=== PATIENT | female | born 1965 | race Caucasian/White ===

== ENCOUNTER 2017-05-26 10:44 | Emergency (ER) | payer MEDICARE, MEDICAID ==
[~2017-05-26] VITALS: Ht 160 cm; Wt 55.0 kg
[~2017-05-26 10:44] MED LIST: AZIT250T PO; CLIN-80 PO; CYCL-394 PO; NEBI10TA4 PO
[2017-05-26] MEDS ORDERED: GUAI1TBM19 PO (11:38)
[2017-05-26] MEDS ORDERED: AZIT250T2 PO (11:38)
[2017-05-26] MEDS ORDERED: ALBU6.7H INH (11:38)
[2017-05-26 11:44] VITALS: BP 153/114
== END 2017-05-26 11:46 | disposition home or self-care (01) ==
LOC: ER 10:45
DX: J20.9 Acute bronchitis, unspecified (principal); I10 Essential (primary) hypertension; Z79.899 Other long term (current) drug therapy; Z88.8 Allergy status to other drugs, medicaments and biological substances
CPT/HCPCS: 71020; 99284

== ENCOUNTER 2019-07-31 11:15 | Emergency (ER) | payer MEDICARE, MEDICAID ==
[~2019-07-31] VITALS: Ht 160 cm; Wt 69.5 kg
[~2019-07-31 11:15] MED LIST changes: +ALBU6.7H9 INH; -CLIN-80 PO; +CLIN-97 PO; +GUAI1TBM19 PO
[2019-07-31 11:31] VITALS: BP 151/110
[2019-07-31] MEDS ORDERED: PENI500T2 PO (12:44)
[2019-07-31] MEDS ORDERED: HYDR-4353 PO (12:44)
[2019-07-31] MEDS ORDERED: HYDROcodone/acetaminophen 10/325mg tab PO ONE (12:45)
== END 2019-07-31 13:07 | disposition home or self-care (01) ==
LOC: ER 11:15
DX: K02.9 Dental caries, unspecified (principal); I10 Essential (primary) hypertension; Z98.51 Tubal ligation status; Z98.891 History of uterine scar from previous surgery; Z72.89 Other problems related to lifestyle; Z88.9 Allergy status to unspecified drugs, medicaments and biological substances; Z79.2 Long term (current) use of antibiotics
CPT/HCPCS: 99283

== ENCOUNTER 2023-03-03 11:28 | Emergency (ER) | payer MEDICARE, MEDICAID ==
[~2023-03-03] VITALS: Ht 160 cm; Wt 72.7 kg
[~2023-03-03 11:28] MED LIST changes: +ALBU6.7H14 INH; -ALBU6.7H9 INH
[2023-03-03 11:52] VITALS: TEMP 96.7
--- NOTE | 2023-03-03 12:33 | NUR ---
PT PRESENTS TO THE ER FOR RIGHT ANKLE PAIN. PT REPORTS TAKING A STEP OFF CURB AND ROLLED ANKLE. PT CMS INTANT. PT AIRWAY PATENT, RESPIRATIONS EVEN AND UNLABORED. RIGHT RADIAL PULSE 81.
[2023-03-03] MEDS ORDERED: HYDROcodone/acetaminophen 10/325mg tab PO ONE ×2 (12:50→14:05)
--- NOTE | 2023-03-03 13:20 | NUR ---
reviewed charting agree with findings
[2023-03-03 14:42] VITALS: BP 125/83; PULSE 90; RESP 18; O2SAT 93
--- NOTE | 2023-03-03 14:52 | NUR ---
SPLITTING DONE BY EDWARD HOFFMANN Addendum: 03/03/23 at 1452 by JOHN SPLINTING DONE BY EDWARD HOFFMANN
[2023-03-03] MEDS ORDERED: HYDR-3973 PO (15:01)
--- NOTE | 2023-03-03 19:02 | NUR ---
FIELD SALES CONSULTANT assessment reviewed by RN, approved by this RN.
== END 2023-03-03 15:22 | disposition home or self-care (01) ==
LOC: ER 11:30
DX: S82.832A Other fracture of upper and lower end of left fibula, initial encounter for closed fracture (principal); I10 Essential (primary) hypertension; Z88.6 Allergy status to analgesic agent; Z88.8 Allergy status to other drugs, medicaments and biological substances; Z79.2 Long term (current) use of antibiotics; Z79.899 Other long term (current) drug therapy; Z98.51 Tubal ligation status; W19.XXXA Unspecified fall, initial encounter; Y93.89 Activity, other specified; Y92.89 Other specified places as the place of occurrence of the external cause; Y99.8 Other external cause status
CPT/HCPCS: 29515; 73610; 99284

== ENCOUNTER 2023-03-07 10:35 | Inpatient (IN) | payer MEDICARE, MEDICAID ==
[~2023-03-07] VITALS: Ht 160 cm; Wt 80.0 kg
[~2023-03-07 10:35] MED LIST changes: +HYDR-3973 PO
--- NOTE | 2023-03-07 11:43 | NUR ---
CHANNEL ROUGHER ASSESSMENT REVIEWED BY ANIRUDH SALMON; APPROVED Addendum: 03/07/23 at 1217 by MARSHA NOTE MADE BY Adelia COTE RNC, CS
[2023-03-07] MEDS ORDERED: LIDOcaine 1% W/epiNEPHrine 1:200,000 10ml vial IJ STA (13:57)
[2023-03-07] MEDS ORDERED: fentaNYL/PF 50MCG/1 ML 2ML syringe IV ONE ×3 (14:00→16:00)
[2023-03-07] MEDS ORDERED: LIDOcaine 1% W/epiNEPHrine 1:100,000 20ml vial IJ STA (14:00)
[2023-03-07] MEDS ORDERED: ondansetron/PF 4mg/2ml inj IV ONE ×2 (14:10→17:00)
[2023-03-07] MEDS: LIDOCAINE 1%/EPI 1:100,000 inj. 10 ML multi-dose vial IJ STA ×2 (14:15→14:34)
--- NOTE | 2023-03-07 14:15 | NUR ---
DR RIVER AT BEDSIDE TO INJECT LOCAL ANESTHETIC AND REDUCE ANKLE. EMT TECH AT BEDSIDE TO ASSIST WITH REDUCTION AND SPLINTING.
[2023-03-07] MEDS ORDERED: diazepam inj 5 MG/ML inj. IV ONE (15:35)
[2023-03-07] MEDS ORDERED: propofol 10mg/ml 20ml vial IV ONE (16:15)
[2023-03-07] MEDS ORDERED: morphine 4 MG/ML inj SYRINge IV ONE (17:00)
[2023-03-07] MEDS ORDERED: BUSP15TA7 PO (17:21)
[2023-03-07] MEDS ORDERED: FLUT16SP26 BOTHNARES (17:21)
[2023-03-07] MEDS ORDERED: ATEN50TA8 PO (17:21)
[2023-03-07] MEDS ORDERED: LEVO75TA PO (17:21)
[2023-03-07] MEDS ORDERED: GABA600T13 PO (17:21)
[2023-03-07 17:59] LABS: BASOPHILS # (AUTO) 0.1 X10'3 (0-0.2); BASOPHILS % (AUTO) 1.2 % (0-1); EOSINOPHILS # (AUTO) 0.3 X10'3 (0-0.9); EOSINOPHILS % (AUTO) 4.5 % (0-6); HEMATOCRIT 41.8 % (35.0-45.0); HEMOGLOBIN 13.7 g/dl (12.0-16.0); LYMPHOCYTES # (AUTO) 2.4 X10'3 (1.1-4.8); LYMPHOCYTES % (AUTO) 33.3 % (21-51); MEAN CORPUSCULAR HEMOGLOBIN 29.2 PG (27.0-31.0); MEAN CORPUSCULAR HGB CONC 32.8 g/dL (33.0-36.5); MEAN CORPUSCULAR VOLUME 89.1 FL (78-98); MONOCYTES # (AUTO) 0.6 X10'3 (0-0.9); MONOCYTES % (AUTO) 8.6 % (2-12); NEUTROPHILS # (AUTO) 3.8 X10'3 (1.8-7.7); NEUTROPHILS % (AUTO) 52.4 % (42-75); PLATELET COUNT 393 X10'3 (140-440); RED BLOOD COUNT 4.69 X10'6 (4.20-5.60); RED CELL DISTRIBUTION WIDTH 13.1 % (11.5-14.5); WHITE BLOOD COUNT 7.2 X10'3 (4.5-11.0)
[2023-03-07 18:10] LABS: ALANINE AMINOTRANSFERASE 22 U/L (12-78); ALBUMIN 3.2 G/DL (3.4-5.0); ALBUMIN/GLOBULIN RATIO 0.9 (1.1-1.5); ALKALINE PHOSPHATASE 75 IU/L (46-116); ANION GAP 7 (8-16); ASPARTATE AMINO TRANSFERASE 17 U/L (10-37); BILIRUBIN,TOTAL 0.5 MG/DL (0.1-1.0); BLOOD UREA NITROGEN 12 MG/DL (7-18); BUN/CREATININE RATIO 16.4 (10.0-20.0); CALCIUM 9.6 MG/DL (8.5-10.1); CHLORIDE 103 MMOL/L (99-107); CREATININE 0.73 MG/DL (0.40-0.90); GLUCOSE 103 MG/DL (70-104); POTASSIUM 4.1 MMOL/L (3.5-5.1); SODIUM 140 MMOL/L (135-145); TOTAL CARBON DIOXIDE 30.4 MMOL/L (24-32); TOTAL PROTEIN 6.7 G/DL (6.4-8.2); eCRCL 72 ML/MIN; eGFR 83 ML/MIN
--- NOTE | 2023-03-07 19:14 | NUR ---
Pt given meal tray, given admission plan for tonight and surgery on . Pt comfortable.
[2023-03-07] MEDS ORDERED: acetaminophen 325mg tablet PO PRN (20:10)
[2023-03-07] MEDS ORDERED: potassium Cl 40MEQ/1/2NS 520ml 520 ML IV PRN (20:10)
[2023-03-07] MEDS ORDERED: magnesium hydroxide 30ml (MOM) UD suspension PO PRN (20:10)
[2023-03-07] MEDS ORDERED: potassium Cl 20 mEq SR tablet PO PRN ×2 (20:10)
[2023-03-07] MEDS ORDERED: morphine 2 MG/ML inj. syringe IV PRN (20:10)
[2023-03-07] MEDS ORDERED: magnesium 4gm in 100ml NS 100 ML IV PRN (20:10)
[2023-03-07] MEDS ORDERED: magnesium Cl slow-release 64mg tablet PO PRN (20:10)
[2023-03-07] MEDS ORDERED: HYDROcodone/acetaminophen 5mg/325mg tablet PO PRN (20:10)
[2023-03-07] MEDS ORDERED: mag hydrox/Alum hydrox/simeth 30ml oral suspension PO PRN (20:10)
[2023-03-07] MEDS ORDERED: magnesium 2GM in 50ml NS 50 ML IV PRN (20:10)
[2023-03-07] MEDS ORDERED: ondansetron/PF 4mg/2ml inj IV PRN (20:10)
[2023-03-07] MEDS ORDERED: fluticasone nasal spray 16GM bottle NS PRN (20:25)
[2023-03-07] MEDS ORDERED: non-formulary drug (Gabapentin 1 TAB) PO SCH (21:00)
[2023-03-07] MEDS: gabapentin 300mg capsule PO SCH (21:35)
[2023-03-07] MEDS: HYDROcodone/acetaminophen 10/325mg tab PO SCH (21:36)
[2023-03-07] MEDS: atenolol 50mg tablet PO SCH (21:52)
[2023-03-07] MEDS: busPIRone 15mg tablet PO SCH (21:53)
[2023-03-07 23:00] VITALS: BP 132/89; PULSE 81; RESP 16; TEMP 98.2; O2SAT 94
[2023-03-08] MEDS ORDERED: albuterol 2.5 MG/3 ML nebule NEB PRN (02:00)
[2023-03-08 06:00] VITALS: BP 118/66; PULSE 79; RESP 15; TEMP 97.1; O2SAT 97
--- NOTE | 2023-03-08 06:15 | NUR ---
Patient in room ORTHO 4024. I have received report from Robinson SALMON and had the opportunity to ask questions and assume patient care.
[2023-03-08 06:16] LABS: BASOPHILS # (AUTO) 0.1 X10'3 (0-0.2); BASOPHILS % (AUTO) 1.2 % (0-1); EOSINOPHILS # (AUTO) 0.4 X10'3 (0-0.9); HEMATOCRIT 42.8 % (35.0-45.0); HEMOGLOBIN 14.2 g/dl (12.0-16.0); LYMPHOCYTES # (AUTO) 2.7 X10'3 (1.1-4.8); LYMPHOCYTES % (AUTO) 37.1 % (21-51); MEAN CORPUSCULAR HEMOGLOBIN 29.3 PG (27.0-31.0); MEAN CORPUSCULAR HGB CONC 33.1 g/dL (33.0-36.5); MEAN CORPUSCULAR VOLUME 88.5 FL (78-98); MEAN PLATELET VOLUME 6.9 FL (7.4-10.4); MONOCYTES # (AUTO) 0.7 X10'3 (0-0.9); MONOCYTES % (AUTO) 9.9 % (2-12); NEUTROPHILS # (AUTO) 3.3 X10'3 (1.8-7.7); NEUTROPHILS % (AUTO) 45.8 % (42-75); PLATELET COUNT 379 X10'3 (140-440); RED BLOOD COUNT 4.83 X10'6 (4.20-5.60); RED CELL DISTRIBUTION WIDTH 13.3 % (11.5-14.5); WHITE BLOOD COUNT 7.3 X10'3 (4.5-11.0)
--- NOTE | 2023-03-08 06:29 | NUR ---
reported off to day RN. pt resting, elevating foot on cast elevator. no pain medication requested. noted norco was scheduled instead of PRN - sent note to pharmacy to change to PRN.
[2023-03-08 06:45] LABS: ALANINE AMINOTRANSFERASE 20 U/L (12-78); ALBUMIN 3.1 G/DL (3.4-5.0); ALBUMIN/GLOBULIN RATIO 0.9 (1.1-1.5); ALKALINE PHOSPHATASE 71 IU/L (46-116); ANION GAP 5 (8-16); ASPARTATE AMINO TRANSFERASE 16 U/L (10-37); BILIRUBIN,TOTAL 0.6 MG/DL (0.1-1.0); BLOOD UREA NITROGEN 15 MG/DL (7-18); BUN/CREATININE RATIO 19.2 (10.0-20.0); CALCIUM 9.7 MG/DL (8.5-10.1); CHLORIDE 105 MMOL/L (99-107); CREATININE 0.78 MG/DL (0.40-0.90); GLUCOSE 106 MG/DL (70-104); MAGNESIUM 2.3 MG/DL (1.5-2.4); POTASSIUM 5.2 MMOL/L (3.5-5.1); SODIUM 140 MMOL/L (135-145); TOTAL CARBON DIOXIDE 30.5 MMOL/L (24-32); TOTAL PROTEIN 6.5 G/DL (6.4-8.2); eCRCL 67 ML/MIN; eGFR 77 ML/MIN
[2023-03-08] MEDS: enoxaparin 40mg/0.4ml syringe SUBCUT SCH (07:50)
[2023-03-08] MEDS: levoTHYROXINE 75mcg tablet PO SCH (07:51)
[2023-03-08] MEDS: docusate sod 100mg capsule PO SCH ×2 (07:51→19:40)
[2023-03-08] MEDS: busPIRone 15mg tablet PO SCH ×2 (07:52→19:41)
[2023-03-08] MEDS: gabapentin 300mg capsule PO SCH ×3 (07:52→19:41)
[2023-03-08] MEDS: atenolol 50mg tablet PO SCH ×2 (07:52→19:42)
[2023-03-08] MEDS: HYDROcodone/acetaminophen 10/325mg tab PO SCH (07:54)
[2023-03-08 08:00] VITALS: RESP 15; O2SAT 97
[2023-03-08] MEDS ORDERED: DEXTROMETHORPHAN PO SCH (08:00)
[2023-03-08] MEDS: K and/or MAG REPLACEMENT MC SCH ×2 (08:00→20:00)
[2023-03-08] MEDS ORDERED: GUAIFENESIN PO SCH (08:00)
[2023-03-08 10:00] VITALS: BP 124/66; PULSE 70; RESP 18; TEMP 97.9; O2SAT 92
[2023-03-08] MEDS: HYDROcodone/acetaminophen 10/325mg tab PO PRN ×2 (13:21→19:40)
[2023-03-08 18:00] VITALS: BP 119/71; PULSE 70; RESP 16; TEMP 97.6; O2SAT 95
--- NOTE | 2023-03-08 18:18 | NUR ---
Problems reprioritized. Patient report given, questions answered & plan of care reviewed with Kathy Chavez Rn.
--- NOTE | 2023-03-08 18:30 | NUR ---
Patient in room ORTHO 4024. I have received report from MARIELA HELM and had the opportunity to ask questions and assume patient care.
[2023-03-08 20:00] VITALS: RESP 18; O2SAT 96
[2023-03-08] MEDS: morphine 2 MG/ML inj. syringe IV PRN (21:25)
[2023-03-08 22:00] VITALS: BP 132/84; PULSE 63; RESP 19; TEMP 97.6; O2SAT 93
[2023-03-09] VITALS (15 sets, daily range): BP systolic 92–136; BP diastolic 61–87; PULSE 60–88; RESP 10–18; TEMP 98.5; O2SAT 93–100
[2023-03-09] MEDS: morphine 2 MG/ML inj. syringe IV PRN ×5 (05:10→20:14)
[2023-03-09 06:09] LABS: BASOPHILS # (AUTO) 0.1 X10'3 (0-0.2); BASOPHILS % (AUTO) 1.1 % (0-1); EOSINOPHILS # (AUTO) 0.4 X10'3 (0-0.9); EOSINOPHILS % (AUTO) 6.4 % (0-6); HEMATOCRIT 43.3 % (35.0-45.0); HEMOGLOBIN 14.4 g/dl (12.0-16.0); LYMPHOCYTES # (AUTO) 2.3 X10'3 (1.1-4.8); LYMPHOCYTES % (AUTO) 34.3 % (21-51); MEAN CORPUSCULAR HEMOGLOBIN 29.6 PG (27.0-31.0); MEAN CORPUSCULAR HGB CONC 33.3 g/dL (33.0-36.5); MEAN CORPUSCULAR VOLUME 88.7 FL (78-98); MONOCYTES # (AUTO) 0.7 X10'3 (0-0.9); MONOCYTES % (AUTO) 9.7 % (2-12); NEUTROPHILS # (AUTO) 3.3 X10'3 (1.8-7.7); NEUTROPHILS % (AUTO) 48.5 % (42-75); PLATELET COUNT 374 X10'3 (140-440); RED BLOOD COUNT 4.87 X10'6 (4.20-5.60); RED CELL DISTRIBUTION WIDTH 13.2 % (11.5-14.5); WHITE BLOOD COUNT 6.8 X10'3 (4.5-11.0)
[2023-03-09 06:18] LABS: APTT 29 SECONDS (22-32); INR 0.9 INR; PROTHROMBIN TIME 10.1 SECONDS (9.0-12.0)
[2023-03-09 06:32] LABS: ALANINE AMINOTRANSFERASE 20 U/L (12-78); ALBUMIN 3.1 G/DL (3.4-5.0); ALBUMIN/GLOBULIN RATIO 0.9 (1.1-1.5); ALKALINE PHOSPHATASE 71 IU/L (46-116); ANION GAP 3 (8-16); ASPARTATE AMINO TRANSFERASE 19 U/L (10-37); BILIRUBIN,TOTAL 0.5 MG/DL (0.1-1.0); BLOOD UREA NITROGEN 12 MG/DL (7-18); BUN/CREATININE RATIO 15.8 (10.0-20.0); CALCIUM 9.3 MG/DL (8.5-10.1); CHLORIDE 104 MMOL/L (99-107); CREATININE 0.76 MG/DL (0.40-0.90); GLUCOSE 115 MG/DL (70-104); POTASSIUM 4.6 MMOL/L (3.5-5.1); SODIUM 137 MMOL/L (135-145); TOTAL CARBON DIOXIDE 30.5 MMOL/L (24-32); TOTAL PROTEIN 6.7 G/DL (6.4-8.2); eCRCL 69 ML/MIN; eGFR 79 ML/MIN
--- NOTE | 2023-03-09 06:40 | NUR ---
Problems reprioritized. Patient report given, questions answered & plan of care reviewed with ESTRELLITA SALMON.
--- NOTE | 2023-03-09 06:51 | NUR ---
Patient in room ORTHO 4024. I have received report from VIKY Harris and had the opportunity to ask questions and assume patient care.
[2023-03-09] MEDS: K and/or MAG REPLACEMENT MC SCH ×2 (07:46→20:00)
[2023-03-09] MEDS: busPIRone 15mg tablet PO SCH ×2 (07:57→20:11)
[2023-03-09] MEDS: levoTHYROXINE 75mcg tablet PO SCH (07:57)
[2023-03-09] MEDS: gabapentin 300mg capsule PO SCH ×3 (07:58→20:11)
[2023-03-09] MEDS: docusate sod 100mg capsule PO SCH ×2 (07:58→20:11)
[2023-03-09] MEDS: HYDROcodone/acetaminophen 10/325mg tab PO PRN ×2 (07:58→18:43)
[2023-03-09] MEDS: enoxaparin 40mg/0.4ml syringe SUBCUT SCH (07:59)
[2023-03-09] MEDS: atenolol 50mg tablet PO SCH ×2 (08:03→20:11)
--- NOTE | 2023-03-09 11:30 | NUR ---
pt left for surgery in no distress at this time.
[2023-03-09] MEDS ORDERED: sevoflurane 250ml liquid IH ONE (12:07)
[2023-03-09] MEDS ORDERED: fentaNYL /PF 50mcg/ml 5ml ampule ONE (12:10)
[2023-03-09] MEDS ORDERED: midazolam 1 mg/ML 2ml injection ONE (12:10)
[2023-03-09] MEDS ORDERED: LIDOcaine 2% (20mg/ml) 5ml vial ONE (12:35)
[2023-03-09] MEDS ORDERED: propofol inj 20 ML IV ONE (12:35)
[2023-03-09] MEDS ORDERED: ROPIVAcaine 0.5% (5mg/ml) 30ml vial ONE (12:35)
[2023-03-09] MEDS ORDERED: ceFAZolin 1000mg inj ONE ×2 (12:35)
[2023-03-09] MEDS ORDERED: dexamethasone sod phosphate 4mg/ml inj. ONE (12:35)
[2023-03-09] MEDS ORDERED: ePHEDrine 50MG/ML INJ. ONE (12:35)
[2023-03-09] MEDS ORDERED: 0.9 % SODIUM CHLORIDE 10 ML VIAL ONE ×2 (12:35)
[2023-03-09] MEDS ORDERED: ondansetron/PF 4mg/2ml inj ONE (12:37)
--- NOTE | 2023-03-09 13:54 | NUR ---
Received from OR via BED, accompanied by Anesthesiologist DR COBOS and report given by Anesthesiologist AND PROGRAM AIDE. PT DROWSY BUT APPROPRIATE, PT DENIES PAIN. LEFT FOOT FROM TOES TO BELOW KNEE W/SPLINT W/MAREK WRAP COVERING CDI, TOES PWD, COTTON SEED CULLER 1-2 SECONDS. Addendum: 03/09/23 at 1413 by Angela Alvarez RN Amended: Links added.
[2023-03-09] MEDS ORDERED: morphine 4 MG/ML inj SYRINge IV ONE (14:37)
[2023-03-09] MEDS ORDERED: ringers solution, lacted 1,000 ML IV SCH (14:40)
[2023-03-09] MEDS ORDERED: morphine 4 MG/ML inj SYRINge IV PRN (14:40)
[2023-03-09] MEDS ORDERED: ondansetron/PF 4mg/2ml inj IV PRN (14:40)
[2023-03-09] MEDS ORDERED: HYDROmorphone/PF 0.2 MG/ML SYRINGE IV PRN ×2 (14:40)
[2023-03-09] MEDS ORDERED: proCHLORperazine 10 MG/2 ml inj IV PRN (14:40)
[2023-03-09 14:44] LABS: THYROID STIMULATING HORMONE 5.31 ulU/ml (0.34-4.50)
[2023-03-09] MEDS: acetaminophen 1,000mg/100ml IV 100 ML IV PRN ×2 (15:04→18:32)
--- NOTE | 2023-03-09 15:44 | NUR ---
Report called to receiving nurse. Transferred via BED, NO Belongings. PT IS COMFORTABLE, FAMILY PRESENT IN PTS ROOM. BLL, CALL LIGHT GIVEN, SIDE RAILS UP X 2, SPORTS BETTING MANAGER NOTIFIED OF PTS ARRIVAL. Special Issues communicated to receiving nurse. YES. Addendum: 03/09/23 at 1602 by Angela Alvarez RN Amended: Links added.
--- NOTE | 2023-03-09 16:00 | NUR ---
pt arrived on unit after surgery in no distress and stable at this time. Will continue to do post of vitals and monitor patient closely
--- NOTE | 2023-03-09 18:40 | NUR ---
Problems reprioritized. Patient report given, questions answered & plan of care reviewed with VIKY Harris.
--- NOTE | 2023-03-09 18:45 | NUR ---
Patient in room ORTHO 4024. I have received report from ESTRELLITA SALMON and had the opportunity to ask questions and assume patient care.
[2023-03-10 02:00] VITALS: BP 127/69; PULSE 104; RESP 20; TEMP 98.1; O2SAT 96
[2023-03-10 06:00] VITALS: BP 108/69; PULSE 67; RESP 13; TEMP 98.9; O2SAT 95
[2023-03-10 06:22] LABS: BASOPHILS % (AUTO) 0.2 % (0-1); EOSINOPHILS % (AUTO) 0.1 % (0-6); HEMATOCRIT 40.3 % (35.0-45.0); LYMPHOCYTES # (AUTO) 1.7 X10'3 (1.1-4.8); LYMPHOCYTES % (AUTO) 10.9 % (21-51); MEAN CORPUSCULAR HEMOGLOBIN 28.6 PG (27.0-31.0); MEAN CORPUSCULAR HGB CONC 32.2 g/dL (33.0-36.5); MEAN CORPUSCULAR VOLUME 88.9 FL (78-98); MEAN PLATELET VOLUME 7.2 FL (7.4-10.4); MONOCYTES # (AUTO) 0.9 X10'3 (0-0.9); MONOCYTES % (AUTO) 5.6 % (2-12); NEUTROPHILS # (AUTO) 13.1 X10'3 (1.8-7.7); NEUTROPHILS % (AUTO) 83.2 % (42-75); PLATELET COUNT 389 X10'3 (140-440); RED BLOOD COUNT 4.54 X10'6 (4.20-5.60); RED CELL DISTRIBUTION WIDTH 13.2 % (11.5-14.5); WHITE BLOOD COUNT 15.7 X10'3 (4.5-11.0)
--- NOTE | 2023-03-10 06:30 | NUR ---
Problems reprioritized. Patient report given, questions answered & plan of care reviewed with FIFI SALMON.
[2023-03-10 06:49] LABS: ALANINE AMINOTRANSFERASE 23 U/L (12-78); ALBUMIN 2.9 G/DL (3.4-5.0); ALBUMIN/GLOBULIN RATIO 0.9 (1.1-1.5); ALKALINE PHOSPHATASE 62 IU/L (46-116); ANION GAP 4 (8-16); ASPARTATE AMINO TRANSFERASE 14 U/L (10-37); BILIRUBIN,TOTAL 0.3 MG/DL (0.1-1.0); BLOOD UREA NITROGEN 10 MG/DL (7-18); BUN/CREATININE RATIO 14.9 (10.0-20.0); CHLORIDE 105 MMOL/L (99-107); CREATININE 0.67 MG/DL (0.40-0.90); GLUCOSE 127 MG/DL (70-104); MAGNESIUM 1.9 MG/DL (1.5-2.4); POTASSIUM 4.4 MMOL/L (3.5-5.1); SODIUM 139 MMOL/L (135-145); TOTAL CARBON DIOXIDE 30.2 MMOL/L (24-32); TOTAL PROTEIN 6.1 G/DL (6.4-8.2); eCRCL 78 ML/MIN; eGFR > 90 ML/MIN
[2023-03-10] MEDS: HYDROcodone/acetaminophen 10/325mg tab PO PRN (07:32)
[2023-03-10] MEDS: levoTHYROXINE 75mcg tablet PO SCH (07:34)
[2023-03-10] MEDS: enoxaparin 40mg/0.4ml syringe SUBCUT SCH (07:34)
[2023-03-10] MEDS: busPIRone 15mg tablet PO SCH (07:35)
[2023-03-10] MEDS: docusate sod 100mg capsule PO SCH (07:35)
[2023-03-10] MEDS: gabapentin 300mg capsule PO SCH ×2 (07:35→13:01)
[2023-03-10] MEDS: atenolol 50mg tablet PO SCH (07:37)
[2023-03-10] MEDS: K and/or MAG REPLACEMENT MC SCH (09:29)
[2023-03-10] MEDS: morphine 2 MG/ML inj. syringe IV PRN ×2 (09:31→13:53)
[2023-03-10 10:00] VITALS: BP 109/60; PULSE 73; RESP 18; TEMP 97.1; O2SAT 95
--- NOTE | 2023-03-10 10:15 | NUR ---
Pt reported splint dressing to L ankle tight and tingling to leg. Cap refill within 3 sec. Encouraged elevation on cast pillow but pt reported that it felt more comfortable to have LLE not elevated. Oxygen Therapist paged to eval and possibly loosen splint dressing. Addendum: 03/10/23 at 1059 by Keith Colon RN Amended: Links added.
[2023-03-10] MEDS ORDERED: HYDROcodone/acetaminophen 10/325mg tab PO PRN (11:45)
[2023-03-10 14:00] VITALS: BP 119/81; PULSE 84; RESP 17; TEMP 98.1; O2SAT 96
[2023-03-10] MEDS ORDERED: HYDROmorphone 1 mg/ml syringe IV ONE (15:20)
[2023-03-10] MEDS ORDERED: HYDR-3972 PO (15:23)
--- NOTE | 2023-03-10 18:55 | NUR ---
PATIENT DISCHARGE HOME WITH FAMILY MEMBERS. IV TAKEN OUT AND PATIENT IN APPARENT DISTRESS.
== END 2023-03-10 18:55 | disposition home or self-care (01) | DRG 494 ==
LOC: ER 10:35 → ED HOLD 20:21 → ORTHO 4S 22:30
PROVIDERS: ADMIT Internal Medicine; ATTEND Family Medicine
PROC: 0SSGXZZ Reposition Left Ankle Joint, External Approach (ICD-10-PCS; 2023-03-07)
PROC: 0QSH04Z Reposition Left Tibia with Internal Fixation Device, Open Approach (ICD-10-PCS; 2023-03-09)
PROC: 0QSK04Z Reposition Left Fibula with Internal Fixation Device, Open Approach (ICD-10-PCS; principal; 2023-03-09 12:07)
DX: S82.852A Displaced trimalleolar fracture of left lower leg, initial encounter for closed fracture (principal); E03.9 Hypothyroidism, unspecified; I10 Essential (primary) hypertension; W01.0XXA Fall on same level from slipping, tripping and stumbling without subsequent striking against object, initial encounter; Y93.89 Activity, other specified; Y92.89 Other specified places as the place of occurrence of the external cause; Y99.8 Other external cause status; Z88.8 Allergy status to other drugs, medicaments and biological substances; Z79.899 Other long term (current) drug therapy; Z98.51 Tubal ligation status; Z90.721 Acquired absence of ovaries, unilateral
CPT/HCPCS: 36415; 73600; 73610; 73700; 76000; 80053; 82948; 83735; 84443; 85025; 85610; 85730; 87081; 93005; 93306; 97116; 97161; 97530; 99285; A4618; A6222; A6258; A6446; A6449; A7000; C1713; G0378; J0131; J0690; J1100; J1170; J1650; J2250; J2270; J2405; J2704; J2795; J3010; J3360; J3490; J7060; J7120